=== PATIENT | male | born 1930 | race Caucasian/White ===

== ENCOUNTER 2018-04-21 12:55 | Inpatient (IN) ==
--- NOTE | 2018-04-21 13:36 | Diag Imaging Result Doc PS360 ---
EXAM: CHEST-2 VIEWS 04/21/2018 HISTORY: sob hx chf TECHNIQUE: PA and lateral chest COMMENT: The heart size is slightly enlarged and there are prominent epicardial fat pads. Compared to 02/25/2013 there has been no significant change other than the presence of the pacemaker on the current exam. IMPRESSION: No evidence of acute disease. Electronically signed by Douglas Bhardwaj 04/21/2018 1:34 PM
--- NOTE | 2018-04-21 13:50 | ED EKG INTERP ---
This chart was entered by Raymon Perez Scribe, acting as scribe for Meliton Perez MD. EKG Interpretation - EKG Time of EKG reading by physician:: 13:14 EKG Read and Signed by:: Meliton Perez EKG Interpretation (*Must complete 3 of following elements*): Abnormal Rate: 76 Rhythm: Wide QRS Irene: left QRS: LBB, PVC's [place] Interval: normal ST Wave: normal Attestation - Physician/ JIMMY Attestation Patient care was provided by Advanced Practice Provider:: No The physician spent face to face time with patient:: Yes Advanced Practice Provider documentation review:: Supervising physician onsite and consulted in the evaluation and care of this patient. The physician did have a face to face encounter with the patient. This chart was documented by the indicated scribe, (Raymon Perez Scribe) and accurately reflects the services I performed and decisions made by me, Meliton Perez MD, as attested by the provider's signature.
[2018-04-21 14:04] LABS: BASO# 0.02 X1000 (0.0-0.2); BASO% 0.2 % (0.0-0.8); EOS# 0.12 X1000 (0.0-0.7); EOS% 1.5 % (0.0-10.0); HEMATOCRIT 39.5 % (42.0-52.0); HEMOGLOBIN 12.9 g/dL (14.0-18.0); IMM GRAN# 0.03 X1000 (0.0-0.04); IMM GRAN% 0.4 % (0.0-0.5); MCH 32.2 PG (27-31); MCHC 32.7 g/dL (33-37); MCV 98.5 FL (81-99); MONO# 0.73 X1000 (0.11-0.59); MPV 11.3 FL (7.4-10.4); NEUT# 5.95 X1000 (1.4-6.5); NEUT% 72.9 % (42.2-75.2); PLT 203 X1000 (130-400); RBC 4.01 XMIL (4.7-6.1); RDW 14.1 % (11.5-14.5); WBC 8.15 X1000 (4.8-10.8)
--- NOTE | 2018-04-21 14:14 | EKG Report ---
Test Performed on : 04/21/2018 1:14:18 PM Test Reason : sob hx chf Blood Pressure : / mmHG Vent. Rate : 076 BPM Atrial Rate : 068 BPM P-R Int : 000 ms QRS Dur : 172 ms QT Int : 498 ms P-R-T Axes : 000 -83 095 degrees QTc Int : 560 ms Wide QRS rhythm. with frequent ventricular-paced complexes and with occasional premature ventricular complexes. Left axis deviation Left bundle branch block Abnormal ECG When compared with ECG of 17-JUL-2017 13:18, premature ventricular complexes. are now present Vent. rate has increased BY 6 BPM Unconfirmed Result
[2018-04-21 14:19] LABS: INR 1.05; PROTIME 14.2 Seconds (11.0-16.0)
[2018-04-21 14:23] LABS: ALBUMIN 3.7 g/dL (3.5-5.0); CALCIUM 8.3 mg/dL (8.8-10.2); CREATININE 1.8 mg/dL (0.7-1.2); MAGNESIUM 2.1 mg/dL (1.5-2.7); POTASSIUM 4.3 mmol/L (3.5-5.1); TOTAL BILIRUBIN 0.9 mg/dL (0.20-1.00); TOTAL PROTEIN 6.2 g/dL (6.3-8.3)
[2018-04-21 14:43] LABS: BILIRUBIN URINE NEGATIVE (NEGATIVE); BLOOD URINE NEGATIVE (NEGATIVE); CLARITY SL. CLOUDY (CLEAR); COLOR YELLOW; GLUCOSE URINE NEGATIVE (NEGATIVE); KETONE URINE NEGATIVE (NEGATIVE); LEUKOCYTES URINE NEGATIVE (NEGATIVE); NITRITE URINE NEGATIVE (NEGATIVE); PROTEIN URINE NEGATIVE (NEGATIVE); SP GRAVITY URINE 1.005; UROBILINOGEN URINE NORMAL
[2018-04-21 14:47] LABS: URINE BACTERIA NEGATIVE /HFP; URINE CAST NONE SEEN /LPF; URINE CRYSTAL NONE SEEN /HPF; URINE EPITHELIAL CELLS <10 /HPF (<10); URINE SOURCE CLEAN CATCH; URINE YEAST NONE SEEN /HPF
--- NOTE | 2018-04-21 18:45 | Extremity Venous Study ---
EXAM: Venous U/S Bilateral Legs INDICATION: leg swelling, palpable veins, elevated d dimer TECHNIQUE: COMPARISON: None. FINDINGS: There are no discrete filling defects and there is normal Doppler flow, augmentation, and compressibility involving the deep venous system of the left and right lower extremities. There is bilateral lower extremity soft tissue edema and there is a popliteal cyst on the left. IMPRESSION: 1.No evidence of DVT. 2.Bilateral lower extremity soft tissue edema and a left popliteal cyst. Electronically signed by Lisandro Montalvo 04/21/2018 6:42 PM
[2018-04-21] MEDS ORDERED: LASIX IV ONE (20:42)
--- NOTE | 2018-04-21 20:49 | PROVIDER DOCUMENTATION ---
This chart was entered by Raymon Perez Scribe, acting as scribe for Eber Duff MD. HPI-Respiratory General - General Chief Complaint: Shortness of Breath Stated Complaint: CHF Time Seen by Provider: 04/21/18 16:51 Source: patient, family Allergies/Adverse Reactions: Patient Allergies Allergy/AdvReac Type Severity Reaction Status Date / Time amiodarone Allergy Severe SHORTNESS Verified 04/21/18 20:10 OF BREATH codeine Allergy Severe NAUSEA/VOMI Verified 04/21/18 20:10 TING hydrocodone bitartrate * Allergy Severe NAUSEA/VOMI Verified 04/21/18 20:10 [From Lortab] TING morphine Allergy Severe NAUSEA/VOMI Verified 04/21/18 20:10 TING nitroglycerin Allergy Severe Unknown Verified 04/21/18 20:10 propoxyphene HCl * Allergy Severe NAUSEA/VOMI Verified 04/21/18 20:10 [From Darvon] TING Sulfa (Sulfonamide Allergy Severe NAUSEA/VOMI Verified 04/21/18 20:10 Antibiotics) TING dronedarone [From Multaq] Allergy Unknown Verified 04/21/18 20:10 Home Medications: Home Medication List Medication Instructions Recorded Confirmed Last Taken Type Furosemide [Lasix] 80 mg PO BID 02/26/13 04/21/18 07/18/17 17:00 History 80 Potassium Chloride E.r. [Klor-Con] 20 meq PO BID 02/26/13 04/21/18 07/18/17 18: 00 History 20 Aspirin 325 mg PO DAILY 04/12/15 04/21/18 07/18/17 07:00 History 325 Metoprolol Succinate E.r. [Toprol 25 mg PO DAILY 04/12/15 07/19/17 07/18/17 18: 00 History Xl] 25 Ubidecarenone/[place]-3/Vit E [Co 2 each PO DAILY 04/12/15 04/21/18 07/18/17 07: 00 History Q-10-Vit E-Fish Oil Sfgl] 2 Cetirizine HCl [Zyrtec] 10 mg PO DAILY 07/26/16 04/21/18 07/18/17 07:00 History 10 Metolazone 2.5 mg PO EVERY OTHER DAY 07/26/16 07/19/17 07/18/17 07:00 History 2.5 Insulin Glargine,Hum.rec.anlog 24 unit SQ BID 07/17/17 04/21/18 07/18/17 18:00 History [Lantus Solostar] 24 Leuprolide Acetate [Eligard] 7.5 mg SQ DIRECTED 07/17/17 04/21/18 06/19/17 History 735 Multivit-Min/FA/Lycopen/Lutein 1 each PO DAILY 07/17/17 04/21/18 07/18/17 07:00 History [Centrum Silver Tablet] 1 Tramadol [Ultram] 50 mg PO Q6H PRN PRN #10 tab 07/19/17 Unknown Rx Spironolactone 25 mg PO 04/21/18 Unknown History - History of Present Illness-Resp Nature of Presenting Problem: 88 hx of chf presents to ed with cc of sob. Reports bilateral lower extremity edema. Was being seen at neuropathy clinic at [place] which told pt to go to pcp, pcp Dr. Cisneros sent pt to ED for sob. Sob started to get worse saturday night. Pt takes lasix. Reports orthopnea and chest pain on exertion. CP is described as dull pain. Reports cp has been going on for 1 year. 2 bypass surgeries in August 1993 and May 2004. Hx of diabetes. Urine output decreased. Denies abd pain, n,v,d. Severity in ED: reports: mild Timing: reports: still present Cough Quality/Degree: reports: no cough Current Respiratory Medication Therapy: Initiated see nurses note Review of Systems - Adult - REVIEW OF SYSTEMS - ADULT Constitutional: denies: chills, fever, fatique Eyes: denies: discharge, blurred vision Ears, Nose, Mouth & Throat: denies: ear pain, sinus problem, throat pain Cardiovascular: reports: chest pain, edema, orthopnea. denies: irregular heart rate, syncope Respiratory: reports: dyspnea on exertion, shortness of breath. denies: chronic cough, excessive sputum production, wheezing Gastrointestinal: denies: abdominal pain, diarrhea, nausea, vomiting Genitourinary: denies: frequent UTI's, urgency Musculoskeletal: reports: see HPI. denies: joint pain, joint swelling, neck pain Integumentary: reports: no symptoms reported Neurological: reports: no symptoms reported Psychiatric: reports: no symptoms reported Endocrine: reports: no symptoms reported Hematologic/Lymphatic: reports: no symptoms reported Allergic/Immunologic: reports: no symptoms reported All Other Systems: Reviewed and Negative Past History - Adult - PAST MEDICAL HISTORY-ADULT Review of Records: reports: Nursing Assessment Review Cardiovascular: reports: denies history Respiratory: reports: denies history Gastrointestinal: reports: denies history Genitourinary: reports: prostate cancer Musculoskeletal: reports: denies history Neurological: reports: denies history Endocrine/Immune: reports: thyroid disorder (ca), Diabetes Other Conditions: reports: denies history Additional History: cabg - IMMUNIZATION STATUS Childhood Immunizations: See Nurse Assessment Flu Vaccine: See Nurse Assessment - FAMILY HISTORY Family History: reviewed, not pertinent - SOCIAL HISTORY Smoking: denies Substance Use: none/never Physical Exam-General - PHYSICAL EXAM-ADULT Initial Vital Signs Reviewed: Yes - CONSTITUTIONAL General Appearance: appears well, alert, mild distress - EYES Eyes: PERRL/EOMI, pink conjunctivae - HEAD, EARS, NOSE, MOUTH & THROAT HENMT: moist mucous membranes - NECK Neck: non-tender, full range of motion, supple, normal inspection - RESPIRATORY Respiratory: chest non-tender, lungs clear, normal breath sounds, no pleuratic chest pain, no respiratory distress, no accessory muscle use. negative: crackles, rales, rhonchi, stridor, wheezing - CARDIOVASCULAR Cardiovascular: regular rate, rhythm, no edema, no gallop, no JVD, no murmur, gallop/S3 - GASTROINTESTINAL (ABDOMEN) Abdominal Exam: non tender, soft, no organomegaly, no pulsatile mass. negative : distended, guarding, rigid, rebound, tenderness - LYMPHATIC Lymphatic: no adenopathy - MUSCULOSKELETAL Back Exam: normal inspection Extremity: normal range of motion, calf tenderness (right), erythema (bilateral lower extremities), pedal edema (bilateral), swelling (bilateral swelling right more prominent than left), tenderness (bilateral lower extremity), other (R / L lower leg swollen, no erythema, palpable veins in posterior knee, significantly swollen R > L) - SKIN Integumentary: normal color, normal turgor, warm/dry - NEUROLOGIC Neurologic: grossly normal - PSYCHIATRIC Psych/Mental Status: normal mood/affect, normal thought content, normal thought process, oriented x 3 - HEART Score HEART Score: History: Slightly Suspicious HEART Score: ECG: Non-Specific Repolarization Disturbance/LBBB/PM HEART Score: Age: > or = 65 Years HEART Score: Risk Factors for Atherosclerotic Disease: > or = 3 Risk Factors or History of Atherosclerotic Disease HEART Score: Troponin: < or = Normal Limit Total HEART Score:: 5 Progress - PLAN OF CARE/RESULTS Progress/Plan/Lab Results: Vital Signs - 8 hr 04/21/18 13:00 04/21/18 18:47 Temperature 97.5 F L 97.9 F Pulse Rate 74 75 Respiratory Rate 18 17 Blood Pressure 124/86 118/59 O2 Sat by Pulse Oximetry 98 98 Laboratory Results - last 24 hr 04/21/18 04/21/18 04/21/18 13:19 13:19 13:19 WBC 8.15 RBC 4.01 L Hgb 12.9 L Hct 39.5 L MCV 98.5 MCH 32.2 H MCHC 32.7 L RDW Std Deviation 14.1 Plt Count 203 MPV 11.3 H Immature Gran % (Auto) 0.4 Neut % (Auto) 72.9 Lymph % (Auto) 16.0 L [place] % (Auto) 9.0 Eos % (Auto) 1.5 Baso % (Auto) 0.2 Immature Gran # (Auto) 0.03 Neut # (Auto) 5.95 Lymph # (Auto) 1.30 [place] # (Auto) 0.73 H Eos # (Auto) 0.12 Baso # (Auto) 0.02 PT INR D-Dimer, Quantitative Sodium Potassium Chloride Carbon Dioxide Anion Gap BUN Creatinine Estimated GFR/1.73 m2 BUN/Creatinine Ratio Glucose Calculated Osmolality Calcium Magnesium Total Bilirubin AST ALT Alkaline Phosphatase Creatine Kinase 56 Troponin T < 0.010 [id number]-[id number] Pept Total Protein Albumin Globulin Albumin/Globulin Ratio Urine Source Urine Color Urine Clarity Urine pH Ur Specific Webb Urine Protein Urine Ketones Urine Blood Urine Nitrite Urine Bilirubin Urine Urobilinogen Urine Microscopic RBC Urine WBC Ur Epithelial Cells Urine Crystals Urine Bacteria Urine Casts Urine Yeast Urine Glucose 04/21/18 04/21/18 04/21/18 13:19 13:19 13:19 WBC RBC Hgb Hct MCV MCH MCHC RDW Std Deviation Plt Count MPV Immature Gran % (Auto) Neut % (Auto) Lymph % (Auto) [place] % (Auto) Eos % (Auto) Baso % (Auto) Immature Gran # (Auto) Neut # (Auto) Lymph # (Auto) [place] # (Auto) Eos # (Auto) Baso # (Auto) PT INR D-Dimer, Quantitative 0.71 H Sodium 140 Potassium 4.3 Chloride 102 Carbon Dioxide 25 Anion Gap 13 BUN 31 H Creatinine 1.8 H Estimated GFR/1.73 m2 36 BUN/Creatinine Ratio 17 Glucose 212 H Calculated Osmolality 292 Calcium 8.3 L Magnesium 2.1 Total Bilirubin 0.90 AST 28 ALT 20 Alkaline Phosphatase 94 Creatine Kinase Troponin T Pdo-U-Xdxbedevveg Pept 2071 H Total Protein 6.2 L Albumin 3.7 Globulin 3.0 Albumin/Globulin Ratio 1.0 Urine Source Urine Color Urine Clarity Urine pH Ur Specific Webb Urine Protein Urine Ketones Urine Blood Urine Nitrite Urine Bilirubin Urine Urobilinogen Urine Microscopic RBC Urine WBC Ur Epithelial Cells Urine Crystals Urine Bacteria Urine Casts Urine Yeast Urine Glucose 04/21/18 04/21/18 13:19 13:22 WBC RBC Hgb Hct MCV MCH MCHC RDW Std Deviation Plt Count MPV Immature Gran % (Auto) Neut % (Auto) Lymph % (Auto) [place] % (Auto) Eos % (Auto) Baso % (Auto) Immature Gran # (Auto) Neut # (Auto) Lymph # (Auto) [place] # (Auto) Eos # (Auto) Baso # (Auto) PT 14.2 INR 1.05 D-Dimer, Quantitative Sodium Potassium Chloride Carbon Dioxide Anion Gap BUN Creatinine Estimated GFR/1.73 m2 BUN/Creatinine Ratio Glucose Calculated Osmolality Calcium Magnesium Total Bilirubin AST ALT Alkaline Phosphatase Creatine Kinase Troponin T Rgk-[id number]-Wjfwerwyxbp Pept Total Protein Albumin Globulin Albumin/Globulin Ratio Urine Source CLEAN CATCH Urine Color YELLOW Urine Clarity SL. CLOUDY A Urine pH 7.0 Ur Specific Webb 1.005 Urine Protein NEGATIVE Urine Ketones NEGATIVE Urine Blood NEGATIVE Urine Nitrite NEGATIVE Urine Bilirubin NEGATIVE Urine Urobilinogen NORMAL Urine Microscopic RBC Not Reportable Urine WBC NEGATIVE Ur Epithelial Cells <10 Urine Crystals NONE SEEN Urine Bacteria NEGATIVE Urine Casts NONE SEEN Urine Yeast NONE SEEN Urine Glucose NEGATIVE Orders Category Date Time Status Admit - [facility] Routine AdmDCTranf 04/21/18 20:43 Ordered Activity - Up Ad Mary ORDERED Care 04/21/18 20:43 Ordered Nursing- Obtain EKG once Care 04/21/18 13:08 Active Saline Loc DIRECTED Care 04/21/18 20:43 Ordered Saline Loc NOW Care 04/21/18 18:45 Active Vital Signs Order Q 8-HR .ASSESS Care 04/21/18 20:43 Ordered cardiac diet [Heart Healthy Diet] Diet 04/21/18 20:25 Active CHEST-2 VIEWS [RAD] Stat Exams 04/21/18 13:08 Completed LUNG SCAN / VQ [NM] Stat Exams 04/21/18 17:08 Ordered CBC WITH DIFF [HEME] Stat Lab 04/21/18 13:19 Completed CK PROFILE [SP CHEM] Stat Lab 04/21/18 13:19 Completed COMPREHENSIVE METABOLIC PANEL [CHEM] Stat Lab 04/21/18 13:19 Completed D-DIMER [COAG] Stat Lab 04/21/18 13:19 Completed MAGNESIUM [CHEM] Stat Lab 04/21/18 13:19 Completed PRO B-NATRIURETIC PEPTIDE Stat Lab 04/21/18 13:19 Completed PROTIME WITH INR [COAG] Stat Lab 04/21/18 13:19 Completed TROPONIN T Stat Lab 04/21/18 13:[address] W/POSS RFLX CULT [URINALYSIS] Stat Lab 04/21/18 13:22 Completed Furosemide [Lasix] Med 04/21/18 20:42 Discontinued 80 mg IV NOW ONE Oxygen Device Routine Oth 04/21/18 20:43 Ordered EKG [EKG] Stat Ther 04/21/18 13:08 Draft US [Venous U/S Bilateral Legs] Stat Ther 04/21/18 17:08 Completed Transfer/Admit Order [TRANSFER] Routine Transfer 04/21/18 20:42 Ordered A/P: LE Edema vs CHF exacerbation. HEART score 5. EKG shows new LBBB, Troponins neg. CXR clear. Bilateral lower extremities swollen, +[address] Gonzalez and will give 80 mg lasix and admit for IV diuerisis. Vitals stable. Result Diagrams: 04/21/18 13:19 04/21/18 13:19 - XRAY 1 XRAY: Bilateral XRAY Study: Chest Impression: Normal (nad) - CONSULTS/PCP/HOSPITALIST Notification #1 *Consult/PCP/Hospitalist*: Dr Gonzalez Time Discussed: 20:49 Consult Disposition: Admit (will see in hospital) Departure - Departure Date of Disposition Decision: 04/21/18 Time of Disposition Decision: 20:48 DIAGNOSIS: CHF exacerbation, Peripheral edema Disposition: ADMITTED INPATIENT 09 Certified Medical Emergency: Emergent Condition: Stable Additional Freetext Instructions: We have examined and treated you today on an emergency basis only. This was not a substitute for, or an effort to provide, complete medical care. In most cases , you must let your doctor check you again. Tell your doctor about any new or lasting problems. We cannot recognize and treat all injuries or illnesses in one Emergency Department visit. If you had special tests, such as X-rays or CT scans, will be reviewed by radiologist and will call you if there are any new suggestions Follow up with primary care provider in 1 to 2 days if no improvement. If you do not have a primary care provider, you need to choose one as soon as possible. Take medicines as prescribed. Monitor for any side effects or adverse events from medications. If any side effect, adverse event or rash develops, or if you suspect any other adverse reaction to the medication, then discontinue the medication immediately and contact clinic /PCP or go to the nearest ER. Narcotic meds / sedative meds instruction - patent advised not to drive, operate any machinery or go into water after taking meds as it may impair mental ability to react to the situation in an appropriate manner. Continue other current medicines. Follow up with PCP within 24-48 hours, or sooner if symptoms worsen or fail to improve. Patient / guardian verbalizes understanding of treatment plan, medication, and side effects and agrees with treatment plan. Patient leaves ER in stable condition and ambulatory state. Return to ER as needed. Discharge instructions reviewed verbally and given to patient in written form. Follow up with primary care provider. Referrals and Follow-Ups: Mandeep Cisneros MD [Primary Care Provider] - - Critical Care Note This patient required my direct & personal management of CC.: No Attestation - Physician/ JIMMY Attestation Patient care was provided by Advanced Practice Provider:: No The physician spent face to face time with patient:: Yes Advanced Practice Provider documentation review:: Supervising physician onsite and consulted in the evaluation and care of this patient. The physician did have a face to face encounter with the patient. This chart was documented by the indicated scribe, (Raymon Perez Scribe) and accurately reflects the services I performed and decisions made by me, Eber Duff MD, as attested by the provider's signature.
[2018-04-22] MEDS ORDERED: INSULIN PEN NEEDLES MISC PRN (08:25)
[2018-04-22] MEDS: ALDACTONE PO SCH (10:08)
[2018-04-22] MEDS: ASPIRIN PO SCH (10:08)
[2018-04-22] MEDS: THERA M PLUS PO SCH (10:09)
[2018-04-22] MEDS: ZYRTEC PO SCH (10:09)
[2018-04-22] MEDS: KLOR-CON PO SCH ×2 (10:09→20:21)
[2018-04-22] MEDS: ULORIC PO SCH (10:09)
[2018-04-22] MEDS: LASIX IV SCH ×2 (10:09→20:21)
[2018-04-22 10:10] LABS: HEMATOCRIT 39.3 % (42.0-52.0); HEMOGLOBIN 12.9 g/dL (14.0-18.0); MCH 32.2 PG (27-31); MCHC 32.8 g/dL (33-37); MPV 10.4 FL (7.4-10.4); RBC 4.01 XMIL (4.7-6.1); RDW 14.1 % (11.5-14.5); WBC 6.7 X1000 (4.8-10.8)
[2018-04-22] MEDS: AMARYL PO SCH ×2 (10:15→17:16)
[2018-04-22] MEDS: BACTROBAN OINTMENT TOP SCH (10:15)
--- NOTE | 2018-04-22 10:16 | Diag Imaging Result Doc PS360 ---
EXAM: LUNG SCAN / VQ HISTORY: SOB TECHNIQUE: Nuclear medicine ventilation/perfusion lung scan COMPARISON: Recent chest x-ray from 04/21/2018 FINDINGS: 29.1 mCi technetium DTPA used for the ventilation images. 6.2 mCi technetium MAA given intravenously for the perfusion images. Ventilation and perfusion images obtained in multiple projections. There are no wedge shaped perfusion defects. No ventilation perfusion mismatches. IMPRESSION: No evidence of a pulmonary embolus. Electronically signed by Eduar King 04/22/2018 10:14 AM
[2018-04-22] MEDS: BASAGLAR SUBQ SCH ×2 (10:18→22:40)
[2018-04-22 10:25] LABS: ALBUMIN 3.7 g/dL (3.5-5.0); CREATININE 1.6 mg/dL (0.7-1.2); POTASSIUM 4.2 mmol/L (3.5-5.1); TOTAL PROTEIN 6.8 g/dL (6.3-8.3)
--- NOTE | 2018-04-22 13:30 | Diag Imaging Result Doc PS360 ---
EXAM: CHEST-2 VIEWS HISTORY: short of breath,chf TECHNIQUE: Chest two views COMPARISON: 04/21/2018 FINDINGS: The lungs are well expanded. The heart is borderline mildly prominent. There is a left-sided pacemaker as well as sternal wires. The vessels are not distended. There are no infiltrates. No pleural effusions. IMPRESSION: Borderline mildly prominent heart, but no congestive failure Electronically signed by Eduar King 04/22/2018 1:28 PM
[2018-04-23] MEDS: PROTONIX PO SCH (06:06)
[2018-04-23 07:22] LABS: ALBUMIN 3.7 g/dL (3.5-5.0); CALCIUM 9.1 mg/dL (8.8-10.2); CREATININE 1.5 mg/dL (0.7-1.2); MAGNESIUM 2.3 mg/dL (1.5-2.7); POTASSIUM 4.1 mmol/L (3.5-5.1); TOTAL PROTEIN 6.8 g/dL (6.3-8.3)
[2018-04-23 07:28] LABS: HEMATOCRIT 39.7 % (42.0-52.0); HEMOGLOBIN 13.4 g/dL (14.0-18.0); MCH 32.9 PG (27-31); MCHC 33.8 g/dL (33-37); MCV 97.5 FL (81-99); MPV 11.6 FL (7.4-10.4); RBC 4.07 XMIL (4.7-6.1); RDW 13.9 % (11.5-14.5); WBC 6.59 X1000 (4.8-10.8)
--- NOTE | 2018-04-23 07:55 | HISTORY AND PHYSICAL ---
SUBJECTIVE: Patient was seen and examined by myself on the . Notes that he has had increased shortness of breath and increased swelling in his lower extremities. Denies any fevers or chills. States his lower extremities have started hurting due to his swelling. Denies missing any medications. Denies any fevers or chills. SOCIAL HISTORY: ALLERGIES: Amiodarone causes severe shortness of breath, codeine causing nausea , hydrocodone causing nausea, morphine causing nausea, nitroglycerin unknown, sulfa causing nausea, and Multaq. MEDICATIONS: Lasix 40 b.i.d., potassium 20 b.i.d., aspirin 325, Toprol 25, Co-Q -10, Zyrtec, metolazone 2.5 every other day, insulin 25 units b.i.d., Eligard, tramadol, and spironolactone 25 daily. REVIEW OF SYSTEMS: As noted above. Patient notes that he has been taking his medications. He has had increased orthopnea. He always has chest pain on exertion. He has had decreased urinary output, increased swelling in his lower extremities to the point that it started causing pain. Denies any muscle aches, fevers, chills, cough, congestion. Denies any sick contacts. Denies any chest pain. Does not check his weight on any regular basis. Denies any constipation, melena, or hematochezia. PAST MEDICAL HISTORY: History of hypothyroidism, diabetes, congestive heart failure, history of prostate cancer. He has had coronary artery disease, status post 2 bypass surgeries, one in August of 1993 and one in May of 2004. He has had a recent left heart catheterization that was reported as normal. FAMILY HISTORY: Noncontributory. PHYSICAL EXAMINATION: VITAL SIGNS: Reviewed. Temperature 97.5 degrees, pulse 74, respiratory 18, BP 124/86, saturating 98% on 2 L. GENERAL: Patient is an obese male who is currently in no respiratory distress. Pleasant to talk with. HEENT: Normocephalic, atraumatic. DILLAN. NECK: Supple. No JVD. CARDIOVASCULAR: Regular rate. No murmurs. CHEST: Clear and nonlabored. No current crackles, no wheezing. ABDOMEN: Soft, obese, nondistended. EXTREMITIES: He has bilateral 2+ pitting edema that is tender to touch, right greater than left. There is no real erythema. Moves all extremities well. NEUROLOGIC: No focal changes. He is awake, alert, oriented, and very pleasant to talk with. LABORATORY DATA: WBCs 8, hemoglobin and hematocrit 12 and 39. First set of cardiac enzymes is negative. D-dimer elevated at 0.71. Ultrasound negative and V/Q scan negative. BNP elevated at 2071. Creatinine at baseline at 1.8. ASSESSMENT: 1. Congestive heart failure with exacerbation. 2. Known coronary artery disease. 3. Diabetes. 4. Hypertension. 5. Marked pedal edema with elevated D-dimer, negative V/Q, and negative ultrasound. PLAN: We will admit patient to the hospital. Place him on IV Lasix, which we have done from the ER. Symptoms seem to be a little bit better. We will continue to follow. Further orders as needed. cc: Mandeep Cisneros MD MTDD
[2018-04-23] MEDS: LASIX IV SCH (08:21)
[2018-04-23] MEDS: ZYRTEC PO SCH (08:21)
[2018-04-23] MEDS: ASPIRIN PO SCH (08:22)
[2018-04-23] MEDS: ALDACTONE PO SCH (08:22)
[2018-04-23] MEDS: THERA M PLUS PO SCH (08:22)
[2018-04-23] MEDS: ULORIC PO SCH (08:22)
[2018-04-23] MEDS: AMARYL PO SCH ×2 (08:22→17:21)
[2018-04-23] MEDS: KLOR-CON PO SCH ×2 (08:22→21:20)
[2018-04-23] MEDS: BACTROBAN OINTMENT TOP SCH (08:23)
[2018-04-23] MEDS: BASAGLAR SUBQ SCH ×2 (08:23→21:20)
--- NOTE | 2018-04-23 18:06 | PROGRESS NOTE ---
DATE: 04/23/2018 SUBJECTIVE: The patient notes his leg pain is much improved. He still has a ton of edema, but overall he is feeling better. His leg pain is improved. He still has lots of edema and swelling, but this is better. He notes that the redness is also improving. PHYSICAL EXAMINATION: Vital Signs: Reviewed. Temperature 97.1 degrees, pulse 70, respiratory rate 22, BP 121/67. General: The patient is awake, alert. He is currently in no respiratory distress. Very pleasant to talk with. HEENT: Normocephalic. Neck: Supple. CARDIOVASCULAR: Regular rate. No murmurs. Chest: Clear and nonlabored. Abdomen: Soft, nondistended, nontender. Extremities: Moves all extremities. He has 2+ edema in his lower extremities which is actually improved from yesterday. ASSESSMENT: 1. Marked bilateral lower extremity edema. The patient is actually down 6 pounds overall. 2. Chronic renal failure. Creatinine is actually improved as we have taken some of the stress of fluid overload. 3. Diabetes. 4. Known coronary artery disease. 5. Hypertension. PLAN: We will continue the patient in the hospital. Continue Lasix 80 IV today, as his kidneys are actually improving. He is down 6 pounds. His symptoms are improving. Will follow. cc: Mandeep Cisneros MD
[2018-04-24] MEDS: PROTONIX PO SCH (06:43)
[2018-04-24] MEDS: BACTROBAN OINTMENT TOP SCH (09:11)
[2018-04-24] MEDS: ULORIC PO SCH (09:11)
[2018-04-24] MEDS: BASAGLAR SUBQ SCH ×2 (09:11→21:11)
[2018-04-24] MEDS: ASPIRIN PO SCH (09:11)
[2018-04-24] MEDS: LASIX IV SCH ×2 (09:11→21:12)
[2018-04-24] MEDS: KLOR-CON PO SCH ×2 (09:12→21:11)
[2018-04-24] MEDS: ZYRTEC PO SCH (09:12)
[2018-04-24] MEDS: ALDACTONE PO SCH ×2 (09:12→21:11)
[2018-04-24] MEDS: THERA M PLUS PO SCH (09:12)
[2018-04-24] MEDS: AMARYL PO SCH ×2 (09:12→17:10)
[2018-04-24] MEDS ORDERED: LACTULOSE PO PRN (16:41)
[2018-04-24] MEDS: MIRALAX PO SCH (17:12)
[2018-04-25] MEDS: PROTONIX PO SCH (06:30)
[2018-04-25 07:50] LABS: HEMATOCRIT 40.2 % (42.0-52.0); HEMOGLOBIN 13.6 g/dL (14.0-18.0); MCHC 33.8 g/dL (33-37); MCV 97.6 FL (81-99); MPV 11.5 FL (7.4-10.4); RBC 4.12 XMIL (4.7-6.1); WBC 6.83 X1000 (4.8-10.8)
[2018-04-25 08:04] LABS: ALBUMIN 3.9 g/dL (3.5-5.0); CALCIUM 9.7 mg/dL (8.8-10.2); CREATININE 1.8 mg/dL (0.7-1.2); MAGNESIUM 2.4 mg/dL (1.5-2.7); POTASSIUM 4.5 mmol/L (3.5-5.1); TOTAL BILIRUBIN 0.9 mg/dL (0.20-1.00); TOTAL PROTEIN 7.1 g/dL (6.3-8.3)
[2018-04-25] MEDS: MIRALAX PO SCH ×2 (08:20→08:22)
[2018-04-25] MEDS: AMARYL PO SCH ×2 (08:20→17:54)
[2018-04-25] MEDS: ASPIRIN PO SCH (08:20)
[2018-04-25] MEDS: ZYRTEC PO SCH (08:20)
[2018-04-25] MEDS: BACTROBAN OINTMENT TOP SCH (08:20)
[2018-04-25] MEDS: LASIX IV SCH ×2 (08:20→21:00)
[2018-04-25] MEDS: ULORIC PO SCH (08:20)
[2018-04-25] MEDS: THERA M PLUS PO SCH (08:20)
[2018-04-25] MEDS: ALDACTONE PO SCH ×2 (08:20→21:00)
[2018-04-25] MEDS: KLOR-CON PO SCH ×2 (08:20→20:59)
[2018-04-25] MEDS: BASAGLAR SUBQ SCH ×2 (08:20→20:59)
--- NOTE | 2018-04-25 11:08 | PROGRESS NOTE ---
DATE: 04/24/2018 SUBJECTIVE: Patient seen and examined on the . He notes that he did not get Lasix on the evening of the , and feels as though his legs are more swollen this morning. He is really having no increase in shortness of breath or dyspnea on exertion, but his legs do hurt a little bit more. Denies any fevers or chills. OBJECTIVE: Vital Signs: Temperature 97.4, pulse 70, respiratory 20, BP 124/63. General: Patient is awake, alert, currently in no respiratory distress. He is pleasant to talk with, sitting on the side of the bed. HEENT: Normocephalic. Neck: Supple. CV: Regular rate. Chest: Clear, nonlabored, no crackles. Abdomen: Soft, nondistended. Extremities: Moves all extremities. He has 2+ edema in his bilateral lower extremities, but actually less than what he had on admission. ASSESSMENT: 1. Bilateral lower extremity edema. 2. Hypertension. 3. Known coronary artery disease. PLAN: We will continue patient in the hospital, continue 80 IV Lasix twice daily. We will recheck in the a.m. Recheck his labs. Thankfully, his chronic renal failure has remained stable. Hopefully can discharge home tomorrow. cc: Mandeep Cisneros MD
[2018-04-25] MEDS ORDERED: INSULIN PEN NEEDLES ONE (20:59)
[2018-04-26] MEDS: PROTONIX PO SCH ×2 (05:54→06:20)
[2018-04-26 07:14] LABS: BASO# 0.02 X1000 (0.0-0.2); BASO% 0.3 % (0.0-0.8); EOS% 2.8 % (0.0-10.0); HEMATOCRIT 42.9 % (42.0-52.0); HEMOGLOBIN 14.5 g/dL (14.0-18.0); IMM GRAN# 0.01 X1000 (0.0-0.04); IMM GRAN% 0.1 % (0.0-0.5); LYMPH# 1.75 X1000 (1.2-3.4); LYMPH% 24.2 % (20.5-51.1); MCH 32.7 PG (27-31); MCHC 33.8 g/dL (33-37); MCV 96.8 FL (81-99); MONO# 0.76 X1000 (0.11-0.59); MONO% 10.5 % (1.7-9.3); MPV 11.7 FL (7.4-10.4); NEUT# 4.48 X1000 (1.4-6.5); NEUT% 62.1 % (42.2-75.2); PLT 233 X1000 (130-400); RBC 4.43 XMIL (4.7-6.1); WBC 7.22 X1000 (4.8-10.8)
[2018-04-26 07:41] LABS: ALBUMIN 3.9 g/dL (3.5-5.0); CREATININE 2.1 mg/dL (0.7-1.2); MAGNESIUM 2.5 mg/dL (1.5-2.7); POTASSIUM 4.6 mmol/L (3.5-5.1); TOTAL BILIRUBIN 0.9 mg/dL (0.20-1.00); TOTAL PROTEIN 7.3 g/dL (6.3-8.3)
[2018-04-26] MEDS: LASIX IV SCH ×2 (08:58→21:30)
[2018-04-26] MEDS: ZYRTEC PO SCH (08:58)
[2018-04-26] MEDS: ASPIRIN PO SCH (08:58)
[2018-04-26] MEDS: AMARYL PO SCH ×2 (08:58→16:34)
[2018-04-26] MEDS: MIRALAX PO SCH ×2 (08:59→09:09)
[2018-04-26] MEDS: KLOR-CON PO SCH ×2 (08:59→21:34)
[2018-04-26] MEDS: THERA M PLUS PO SCH (08:59)
[2018-04-26] MEDS: ULORIC PO SCH (08:59)
[2018-04-26] MEDS: BACTROBAN OINTMENT TOP SCH (09:00)
[2018-04-26] MEDS: ALDACTONE PO SCH ×2 (09:03→21:34)
[2018-04-26] MEDS: BASAGLAR SUBQ SCH ×2 (09:04→21:35)
--- NOTE | 2018-04-26 11:46 | PROGRESS NOTE ---
DATE: 04/25/2018 SUBJECTIVE: The patient notes overall he is feeling better. He is having less shortness of breath. He is able to lie flatly in the bed. He states that his lower extremity swelling is also improving. Denies any fevers or chills. PHYSICAL EXAMINATION: Vital Signs: Reviewed. Pulse low 70s. Blood pressure is stable. General: He is awake, alert. The patient is in no current respiratory distress. Very pleasant to talk with. HEENT: Normocephalic. Neck: Supple. Cardiovascular: Regular rate. No murmurs. Chest: Decreased but equal breath sounds. No wheezing, no crackles. Good air movement. Abdomen: Soft, obese, nondistended. Extremities: Moves all extremities. Has 1 to 2+ edema bilateral lower extremities, continues to be slightly improved from yesterday. Neurologic: No focal neurological changes. ASSESSMENT: 1. Acute on chronic renal failure, stable. Creatinine is actually slightly improved from admission. 2. Congestive heart failure, systolic, with exacerbation. 3. Hypertension. 4. Known coronary artery disease. 5. Diabetes. 6. Obesity. PLAN: Continue the patient in the hospital, continue 80 of Lasix IV twice daily, continue spironolactone 25 twice daily. We will continue to follow his kidney function as long as it stays stable. We will continue aggressive diuresis. cc: Mandeep Cisneros MD
--- NOTE | 2018-04-26 19:23 | PROGRESS NOTE ---
DATE: 04/26/2018 SUBJECTIVE: The patient notes that he is feeling better, although he did have significant issues with restless legs last night. He states he only slept 2 to 3 hours and walked the king otherwise, trying to improve his restless legs issues. He states the swelling in his lower extremities has improved. PHYSICAL EXAMINATION: Vital signs: Temperature 97.5 degrees, pulse 70s, respiratory 20, BP 124/63. General: The patient is a very pleasant, elderly male who is in no current respiratory distress. He is sitting up on the side of the bed. HEENT: Normocephalic. Neck: Supple. CARDIOVASCULAR: Regular rate. Chest: Clear and nonlabored. Abdomen: Soft, nondistended, obese. Extremities: Moves all extremities. He has 1 to 2+ edema in his lower extremities. Neurologic: No focal changes. ASSESSMENT: 1. Congestive heart failure with exacerbation. Continues to improve, although slowly. 2. Acute on chronic renal failure. Continues to be stable momentarily. We will continue to follow this closely. 3. Diabetes. 4. Obesity. 5. Hypertension. 6. Known coronary artery disease. PLAN: We will continue the patient in the hospital. Continue to follow. Further orders as needed. cc: Mandeep Cisneros MD
[2018-04-27 05:58] LABS: HEMOGLOBIN 14.8 g/dL (14.0-18.0); MCH 32.7 PG (27-31); MCHC 33.6 g/dL (33-37); MCV 97.1 FL (81-99); MPV 11.4 FL (7.4-10.4); RBC 4.53 XMIL (4.7-6.1); WBC 7.68 X1000 (4.8-10.8)
[2018-04-27] MEDS: PROTONIX PO SCH (06:13)
[2018-04-27 06:15] LABS: ALBUMIN 4.2 g/dL (3.5-5.0); CALCIUM 9.9 mg/dL (8.8-10.2); CREATININE 2.3 mg/dL (0.7-1.2); POTASSIUM 4.5 mmol/L (3.5-5.1); TOTAL BILIRUBIN 0.9 mg/dL (0.20-1.00); TOTAL PROTEIN 7.5 g/dL (6.3-8.3)
[2018-04-27 07:20] VITALS: BP 110/65
[2018-04-27] MEDS: ASPIRIN PO SCH (08:18)
[2018-04-27] MEDS: ALDACTONE PO SCH (08:18)
[2018-04-27] MEDS: THERA M PLUS PO SCH (08:18)
[2018-04-27] MEDS: LASIX IV SCH (08:19)
[2018-04-27] MEDS: MIRALAX PO SCH (08:19)
[2018-04-27] MEDS: ZYRTEC PO SCH (08:19)
[2018-04-27] MEDS: KLOR-CON PO SCH (08:19)
[2018-04-27] MEDS: AMARYL PO SCH (08:19)
[2018-04-27] MEDS: ULORIC PO SCH (08:19)
[2018-04-27] MEDS: BACTROBAN OINTMENT TOP SCH (08:20)
[2018-04-27] MEDS: BASAGLAR SUBQ SCH (08:20)
--- NOTE | 2018-04-27 13:40 | DISCHARGE SUMMARY ---
ADMISSION DATE: 04/21/2018 DISCHARGE DATE: 04/27/2018 DISCHARGE DIAGNOSES: 1. Congestive heart failure, systolic with exacerbation 2. Diabetes. 3. Known coronary artery disease. 4. Hypertension. 5. Acute on chronic renal failure. 6. Marked lower extremity edema. CONSULTATIONS: None. PROCEDURES: None. BRIEF HOSPITAL COURSE: Patient is an 88-year-old male who presented to [facility] secondary to increased work of breathing, shortness of breath, cough, congestion. He has a known history of congestive heart failure. Notes that he has not missed any medications. He has been trying to follow his diet, but he has had increasing shortness of breath, increasing dyspnea on exertion and marked change in his lower extremity edema. He was admitted to the hospital placed, on 80 of Lasix IV twice daily. Ultimately his Aldactone was increased to 25 twice daily. His symptoms continued to improve. On discharge he notes that his swelling in his lower extremities although still present at 1+ is much improved over where he was prior to coming to the hospital. He is having no shortness of breath. He is ambulating without any difficulty. As his creatinine is starting to increase from his normal 1.8 to 2.2, his BUN also elevated, I discussed with him that we had to back off of Lasix. DISPOSITION: We will discharge patient home 80 of Lasix twice daily as well as 25 of spironolactone twice daily. We will continue to follow. We will continue fluid restriction at 1.52 L. He will check daily weights. He will follow up in the office in 1 week, sooner should symptoms worsen or return. cc: Mandeep Cisneros MD
== END 2018-04-27 11:20 | disposition home or self-care (01) | DRG 291 ==
LOC: P.ED 12:55 → P.MEDSURG 22:07
PROVIDERS: ATTEND Family Medicine
CPT/HCPCS: 36415; 71020; 71046; 78582; 80053; 81001; 82550; 82948; 83735; 83880; 84484; 85025; 85027; 85379; 85610; 93005; 93970; 94761; 96374; 99285; A9270; A9539; A9540; J1940; XXXXX

== ENCOUNTER 2019-06-02 17:05 | Inpatient (IN) ==
--- NOTE | 2019-06-02 17:29 | PROVIDER DOCUMENTATION ---
HPI-General Adult - General Chief Complaint: Edema Stated Complaint: SWELLING Time Seen by Provider: 06/02/19 17:12 Source: patient Allergies/Adverse Reactions: Patient Allergies Allergy/AdvReac Type Severity Reaction Status Date / Time amiodarone Allergy Severe SHORTNESS Verified 06/29/18 13:36 OF BREATH codeine Allergy Severe NAUSEA/VOMI Verified 06/29/18 13:36 TING hydrocodone bitartrate * Allergy Severe NAUSEA/VOMI Verified 06/29/18 13:36 [From Lortab] TING morphine Allergy Severe NAUSEA/VOMI Verified 06/29/18 13:36 TING nitroglycerin Allergy Severe Unknown Verified 06/29/18 13:36 propoxyphene HCl * Allergy Severe NAUSEA/VOMI Verified 06/29/18 13:36 [From Darvon] TING Sulfa (Sulfonamide Allergy Severe NAUSEA/VOMI Verified 06/29/18 13:36 Antibiotics) TING dronedarone [From Multaq] Allergy Unknown Verified 06/29/18 13:36 Home Medications: Home Medication List Medication Instructions Recorded Confirmed Last Taken Type Furosemide [Lasix] 80 mg PO BID 02/26/13 05/02/18 05/01/18 History Potassium Chloride E.r. [Klor-Con] 20 meq PO BID 02/26/13 05/02/18 05/01/18 History Aspirin 325 mg PO DAILY 04/12/15 05/02/18 05/01/18 History Ubidecarenone/[place]-3/Vit E [Co 2 each PO DAILY 04/12/15 05/02/18 05/01/18 History Q-10-Vit E-Fish Oil Sfgl] Cetirizine HCl [Zyrtec] 10 mg PO DAILY 07/26/16 05/02/18 05/01/18 History Insulin Glargine,Hum.rec.anlog 30 unit SQ DAILY 07/17/17 05/02/18 05/01/18 History [Lantus Solostar] Multivit-Min/FA/Lycopen/Lutein 1 each PO DAILY 07/17/17 05/02/18 05/01/18 History [Centrum Silver Tablet] Febuxostat [Uloric] 40 mg PO DAILY 04/21/18 05/02/18 05/01/18 History Glimepiride 2 mg PO BID 04/21/18 05/02/18 05/01/18 History Mupirocin Ointment [Bactroban 1 applicatn TOP DAILY 04/21/18 05/02/18 05/01/18 History Ointment] Pantoprazole Sodium 40 mg PO DAILY@0700 04/21/18 05/02/18 05/01/18 History Insulin Glargine,Hum.rec.anlog 35 unit SQ QHS 04/22/18 05/02/18 05/01/18 History [Lantus Solostar] Spironolactone [Aldactone] 25 mg PO BID #60 tab 04/27/18 05/02/18 05/01/18 Rx Tramadol/APAP [Ultracet 1 - 2 ea PO Q6H PRN PRN #30 tab 05/02/18 Unknown Rx 37.5MG/325Mg] Meclizine HCl [Wal-Dram 2] 25 mg PO Q6-8H PRN PRN #20 tab 06/29/18 Unknown Rx Linaclotide [Linzess] 72 mcg PO DAILY@0700 #5 cap 08/22/18 Unknown Rx - History of Present Illness -Gen Adult Nature of Presenting Problems: 89 YOM with DM, CH,CAD presents with c/o worsening BLE edema, SOB, Orthopnea (s leeping in chair). Denies fever, chills, n/v/d, CP. Location of Pain/Injury: reports: lower extremity (BLE) Pain Radiation: reports: no radiation Quality of Pain: reports: fullness Severity: reports: moderate Onset/Duration: reports: 3 days ago Timing: reports: still present Context/Activities at Onset: reports: none Modifying Factors: improves with: other (lasix, elevation) Associated Symptoms: reports: shortness of breath, other (EDEMA) Similar Symptoms Previously?: Yes Recently seen or treated by another doctor?: No Review of Systems - Adult - REVIEW OF SYSTEMS - ADULT Constitutional: reports: no symptoms reported. denies: chills, fever Eyes: reports: no symptoms reported. denies: decreased vision, blurred vision, double vision Ears, Nose, Mouth & Throat: reports: no symptoms reported. denies: epistaxis, sinus problem, nose pain, loose teeth, mouth/dental pain, mouth swelling Cardiovascular: reports: no symptoms reported, edema (BLE), orthopnea, PND. denies: heart murmur, palpitations Respiratory: reports: see HPI, shortness of breath. denies: cough, hemoptysis, wheezing Gastrointestinal: reports: no symptoms reported. denies: see HPI, abdominal pain, hematemesis, constipation, diarrhea, difficulty swallowing, frequent heartburn, nausea, poor appetite, rectal bleeding, vomiting, other Genitourinary: reports: no symptoms reported. denies: see HPI, dysuria, discharge, frequency, flank pain, frequent UTI's, hematuria, hesitency, incontinence, urinary retention, urgency, other Musculoskeletal: reports: no symptoms reported. denies: see HPI, bone pain, back pain, frequent leg cramps, joint pain, joint swelling, muscle aches, muscle weakness, neck pain, other Integumentary: reports: no symptoms reported. denies: see HPI, hives, hair loss, itching, mole changes, nail changes, rash, skin sores/ulcer, skin thickening, other Neurological: reports: no symptoms reported. denies: see HPI, ataxia, dizz iness/vertigo, headache/migraines, loss of balance, numbness, paresthesia, seizure, slurred speech, syncope, tremors, other Psychiatric: reports: no symptoms reported. denies: see HPI, anxiety, anti- depressant use, alcohol/drug dependence, depression, emotional problems, in somnia, panic attacks, suicidal thoughts, other Endocrine: reports: no symptoms reported. denies: see HPI, change in skin pigment, excessive sweating, goiter, cold intolerance, heat intolerance, increased hunger, increased thirst, polyuria, other Hematologic/Lymphatic: reports: no symptoms reported. denies: see HPI, blood clots, easy bruising, low blood count, lymphedema, prolonged bleeding, swollen lymph nodes, transfusions, other Allergic/Immunologic: reports: no symptoms reported. denies: see HPI, allergic reactions, allergic rhinitis, asthma, eczema, food allergy, frequent infections, hay fever, hives, positive PPD, urticaria, other Past History - Adult - PAST MEDICAL HISTORY-ADULT Review of Records: reports: Nursing Assessment Review, Social history reviewed & non-contributory. Major Childhood Illnesses: reports: denies history Cardiovascular: reports: denies history Respiratory: reports: denies history Gastrointestinal: reports: denies history Obstetrical/Gynecological: reports: denies history Genitourinary: reports: prostate cancer Musculoskeletal: reports: denies history Neurological: reports: denies history Endocrine/Immune: reports: thyroid disorder (ca), Diabetes Other Conditions: reports: denies history Additional History: cabg - IMMUNIZATION STATUS Childhood Immunizations: See Nurse Assessment Flu Vaccine: See Nurse Assessment - FAMILY HISTORY Family History: reviewed, not pertinent Physical Exam-General - PHYSICAL EXAM-ADULT Initial Vital Signs Reviewed: Yes - CONSTITUTIONAL General Appearance: alert, no apparent distress - EYES Eyes: PERRL/EOMI, pink conjunctivae - HEAD, EARS, NOSE, MOUTH & THROAT HENMT: normocephalic/atraumatic, moist mucous membranes, normal ENT inspection - NECK Neck: non-tender, full range of motion, supple - RESPIRATORY Respiratory: chest non-tender, lungs clear, normal breath sounds, no pleuratic chest pain, no respiratory distress, no accessory muscle use - CARDIOVASCULAR Cardiovascular: normal peripheral pulses, regular rate, rhythm, no gallop, no JVD, no murmur. negative: no edema (BLE +2) - GASTROINTESTINAL (ABDOMEN) Abdominal Exam: normal bowel sounds, non tender, soft - LYMPHATIC Lymphatic: no adenopathy - MUSCULOSKELETAL Back Exam: normal inspection, no CVA tenderness, no vertebral tenderness Extremity: normal range of motion, non-tender, normal gait, normal inspection, no calf tenderness, pedal edema (BLE +2), tenderness (BLE) Peripheral Pulses: radial (R): 2+, radial (L): 2+ - SKIN Integumentary: normal color, normal turgor, warm/dry - NEUROLOGIC Neurologic: grossly normal - PSYCHIATRIC Psych/Mental Status: normal mood/affect, oriented x 3 Progress - PLAN OF CARE/RESULTS Progress/Plan/Lab Results: Vital Signs - 8 hr 06/02/19 17:19 Temperature 97.6 F Pulse Rate 70 Respiratory Rate 21 Blood Pressure 120/68 O2 Sat by Pulse Oximetry 97 Orders Category Date Time Status FSBS [Finger Stick Blood Sugar (ED)] DIRECTED Care 06/02/19 17:24 Ordered Saline Loc NOW Care 06/02/19 17:23 Ordered CHEST-2 VIEWS [RAD] Stat Exams 06/02/19 17:23 Ordered CBC WITH ELECTRONIC DIFF [HEME] Stat Lab 06/02/19 17:23 Uncollected COMPREHENSIVE METABOLIC PANEL [CHEM] Stat Lab 06/02/19 17:23 Uncollected LACTATE, PLASMA [CHEM] Q3H Lab 06/02/19 17:30 Uncollected LACTATE, PLASMA [CHEM] Q3H Lab 06/02/19 20:30 Uncollected LACTATE, PLASMA [CHEM] Q3H Lab 06/02/19 23:30 Uncollected PRO B-NATRIURETIC PEPTIDE Stat Lab 06/02/19 17:23 Uncollected 1828: CALLED LAB REGARDING CMP, STILL RUNNING Result Diagrams: 06/02/19 18:01 06/02/19 18:01 - EKG 1 Time of EKG reading by physician:: 18:05 EKG Read and Signed by:: Meliton Perez EKG Interpretation (*Must complete 3 of following elements*): Abnormal Rate: 70 Rhythm: SR with AV dissociation and wide QRS with freq v-paced complexes [place]: left QRS: LVH, other (wide qrs) MA Interval: normal ST Wave: non-specific ST changes Prior EKG Comparison: changes noted - XRAY 1 XRAY Study: Chest Impression: See EMR Report (EXAM: CHEST-2 VIEWS HISTORY: CHF TECHNIQUE: Two views COMPARISON: 08/22/2018 FINDINGS: The lungs are well expanded. The heart is not enlarged. There are sternal wires and surgical clips as well as a left-sided pacemaker. The vessels are not distended. There are no infiltrates. No pleural effusions. IMPRESSION: No congestive failure. Electronically signed by Eduar King 06/02/2019 5:41 PM 06/02/19 174 Interpreting Physician: Eduar King MD Dictated Date/Time: 06/02/19 174 cc: Addis Pacheco; Mandeep Cisneros MD) - CONSULTS/PCP/HOSPITALIST Notification #1 *Consult/PCP/Hospitalist*: DR. ORTA PAGED AT 1908 Time Discussed: 19:11 Consult Disposition: Admit Departure - Departure Date of Disposition Decision: 06/02/19 Time of Disposition Decision: 19:11 DIAGNOSIS: CHF exacerbation, Peripheral edema, Orthopnea Disposition: ADMITTED INPATIENT 09 Certified Medical Emergency: Emergent Condition: Stable Referrals and Follow-Ups: Mandeep Cisneros MD [Primary Care Provider] - - Critical Care Note This patient required my direct & personal management of CC.: No Attestation - Physician/ JIMMY Attestation Patient care was provided by Advanced Practice Provider:: Yes Advanced Practice Provider:: Addis Pacheco Advanced Practice Provider documentation review:: The Mid-level provider documentation, treatment plan and medical decision making was reviewed by the physician who agrees with all treatment and medical decision making by the MLP. The physician spent face to face time with patient:: No Advanced Practice Provider documentation review:: Supervising physician onsite and consulted in the evaluation and care of this patient. The physician did not have a face to face encounter with the patient.
--- NOTE | 2019-06-02 17:43 | Diag Imaging Result Doc PS360 ---
EXAM: CHEST-2 VIEWS HISTORY: CHF TECHNIQUE: Two views COMPARISON: 08/22/2018 FINDINGS: The lungs are well expanded. The heart is not enlarged. There are sternal wires and surgical clips as well as a left-sided pacemaker. The vessels are not distended. There are no infiltrates. No pleural effusions. IMPRESSION: No congestive failure. Electronically signed by Eduar King 06/02/2019 5:41 PM
[2019-06-02 18:13] LABS: BASO# 0.01 X1000 (0.0-0.2); BASO% 0.1 % (0.0-0.8); EOS# 0.14 X1000 (0.0-0.7); HEMATOCRIT 37.7 % (42.0-52.0); HEMOGLOBIN 12.3 g/dL (14.0-18.0); IMM GRAN# 0.02 X1000 (0.0-0.04); IMM GRAN% 0.3 % (0.0-0.5); LYMPH# 1.27 X1000 (1.2-3.4); LYMPH% 18.2 % (20.5-51.1); MCH 32.7 PG (27-31); MCHC 32.6 g/dL (33-37); MCV 100.3 FL (81-99); MONO# 0.62 X1000 (0.11-0.59); MONO% 8.9 % (1.7-9.3); MPV 10.8 FL (7.4-10.4); NEUT% 70.5 % (42.2-75.2); PLT 192 X1000 (130-400); RBC 3.76 XMIL (4.7-6.1); RDW 14.2 % (11.5-14.5); WBC 6.96 X1000 (4.8-10.8)
[2019-06-02] MEDS ORDERED: LASIX IV ONE (19:03)
[2019-06-02 19:05] LABS: CALCIUM 9.2 mg/dL (8.8-10.2); CREATININE 1.6 mg/dL (0.7-1.2); POTASSIUM 4.3 mmol/L (3.5-5.1); TOTAL BILIRUBIN 0.8 mg/dL (0.20-1.00); TOTAL PROTEIN 6.8 g/dL (6.3-8.3)
[2019-06-02] MEDS: LASIX IV SCH (22:05)
[2019-06-02] MEDS: HUMALOG (PARKWAY) SUBQ SCH (22:36)
[2019-06-03 06:11] LABS: BASO# 0.01 X1000 (0.0-0.2); BASO% 0.2 % (0.0-0.8); EOS# 0.11 X1000 (0.0-0.7); EOS% 1.8 % (0.0-10.0); HEMATOCRIT 37.8 % (42.0-52.0); HEMOGLOBIN 12.2 g/dL (14.0-18.0); IMM GRAN# 0.01 X1000 (0.0-0.04); IMM GRAN% 0.2 % (0.0-0.5); LYMPH# 1.03 X1000 (1.2-3.4); LYMPH% 16.6 % (20.5-51.1); MCH 32.4 PG (27-31); MCHC 32.3 g/dL (33-37); MCV 100.3 FL (81-99); MONO# 0.55 X1000 (0.11-0.59); MONO% 8.9 % (1.7-9.3); MPV 10.8 FL (7.4-10.4); NEUT# 4.48 X1000 (1.4-6.5); NEUT% 72.3 % (42.2-75.2); PLT 181 X1000 (130-400); RBC 3.77 XMIL (4.7-6.1); RDW 14.1 % (11.5-14.5); WBC 6.19 X1000 (4.8-10.8)
[2019-06-03 06:25] LABS: CALCIUM 9.2 mg/dL (8.8-10.2); CREATININE 1.7 mg/dL (0.7-1.2); POTASSIUM 4.1 mmol/L (3.5-5.1)
[2019-06-03] MEDS: HUMALOG (PARKWAY) SUBQ SCH ×4 (07:35→21:49)
[2019-06-03] MEDS: LASIX IV SCH ×2 (09:43→20:49)
[2019-06-03] MEDS: ULTRACET 37.5MG/325MG PO PRN ×2 (14:37→20:48)
[2019-06-03] MEDS: ALDACTONE PO SCH ×2 (14:38→20:47)
[2019-06-03] MEDS: KLOR-CON PO SCH (20:47)
[2019-06-04 05:55] LABS: HEMOGLOBIN 12.9 g/dL (14.0-18.0); MCH 32.2 PG (27-31); MCHC 32.3 g/dL (33-37); MCV 99.8 FL (81-99); MPV 11.2 FL (7.4-10.4); RBC 4.01 XMIL (4.7-6.1); RDW 14.1 % (11.5-14.5); WBC 5.9 X1000 (4.8-10.8)
[2019-06-04 06:21] LABS: ALBUMIN 3.7 g/dL (3.5-5.0); CALCIUM 9.3 mg/dL (8.8-10.2); CREATININE 1.7 mg/dL (0.7-1.2); TOTAL BILIRUBIN 0.9 mg/dL (0.20-1.00)
[2019-06-04] MEDS: HUMALOG (PARKWAY) SUBQ SCH (06:21)
[2019-06-04] MEDS: LASIX IV SCH (08:52)
[2019-06-04] MEDS: ALDACTONE PO SCH (08:53)
[2019-06-04] MEDS: KLOR-CON PO SCH (08:53)
[2019-06-04] MEDS ORDERED: ASPIRIN PO SCH (09:00)
[2019-06-04] MEDS ORDERED: THERA M PLUS PO SCH (09:00)
[2019-06-04] MEDS ORDERED: FISH OIL CONCENTRATE PO SCH (09:00)
[2019-06-04 09:05] VITALS: BP 107/70
--- NOTE | 2019-06-04 18:09 | HISTORY AND PHYSICAL ---
CHIEF COMPLAINT: Shortness of breath, swelling in legs. HISTORY OF PRESENT ILLNESS: The patient is an 89-year-old male who presented to the hospital secondary to increased work of breathing, increased lower extremity swelling, increased shortness of breath and orthopnea. He notes he is having to sit up in the chair to breathe. Denies any fevers or chills. Denies any nausea, vomiting or diarrhea. Denies any chest pain. SOCIAL HISTORY: The patient is . He is retired. He lives at home, does not smoke or drink. ALLERGIES: Amiodarone, causing shortness of breath; codeine, causing nausea; [place], nausea; morphine, nausea; sulfa, nausea; Multaq, unknown. MEDICATIONS: Lasix 80 b.i.d., potassium 20 b.i.d., aspirin, insulin Lantus 30 units, Uloric, pantoprazole, Aldactone 25 b.i.d. and Linzess as needed. PAST MEDICAL HISTORY: Significant for coronary artery disease, diabetes, hypothyroidism, congestive heart failure, hypertension and gout. REVIEW OF SYSTEMS: As noted above. Denies any fevers or chills. Denies dysuria, frequency or urgency. Denies hesitancy. States he does have increased swelling in his lower extremities, increased shortness of breath, increased dyspnea on exertion. Denies any headaches or blurred vision. PHYSICAL EXAMINATION: VITAL SIGNS: Reviewed. Temperature 97 degrees, pulse 70, respiratory rate 21, BP 120/68. GENERAL: The patient is awake, alert. He is very pleasant. He is in minimal respiratory distress. HEENT: Normocephalic. NECK: Supple. CARDIOVASCULAR: Regular rate. CHEST: Decreased due to body habitus, otherwise clear. No crackles. ABDOMEN: Soft. EXTREMITIES: Moves all extremities. He does have 3+ edema in his lower extremities. SKIN: Warm and dry. No rashes. ASSESSMENT: 1. Congestive heart failure, systolic, with exacerbation. 2. Lower extremity edema. 3. Orthopnea. 4. Diabetes. 5. Hypertension. 6. Gout. PLAN: We are going to continue the patient in the hospital. Increase his Lasix. Continue to follow. Further orders as needed. cc: Mandeep Cisneros MD
--- NOTE | 2019-06-04 19:30 | DISCHARGE SUMMARY ---
ADMISSION DATE: 06/02/2019 DISCHARGE DATE: 06/04/2019 DISCHARGE DIAGNOSIS: 1. Systolic congestive heart failure with exacerbation. 2. Known coronary artery disease. 3. Atrial fibrillation. 4. Gout. 5. Hypertension. CONSULTATIONS: None. PROCEDURES: None. BRIEF HOSPITAL COURSE: The patient is a very pleasant 89-year-old male who presented to the hospital secondary to increased swelling in his lower extremities, increased shortness of breath and orthopnea. Thankfully, his symptoms improved with IV Lasix as they typically have in the past. On discharge he is awake, alert. He is in no distress. Overall, he has improved. We are going to discharge him home. DISPOSITION: Patient's orthopnea as well as other systolic congestive heart failure symptoms have resolved. He is effectively back to his baseline. We are going to continue him on Lasix as well as other home medications at home without any changes. He will follow up in the office in 1 week, sooner should symptoms worsen or return. Greater than 30 minutes was spent in total care. cc: Mandeep Cisneros MD
== END 2019-06-04 10:47 | disposition home health service (06) | DRG 293 ==
LOC: P.ED 17:05 → P.MEDSURG 17:06
PROVIDERS: ADMIT Family Medicine; ATTEND Family Medicine